=== PATIENT | male | born 1945 | race Caucasian/White ===

== ENCOUNTER → 2023-10-02 14:42 | Outpatient (REF) | payer MEDICARE, OTHER, SELFPAY ==
[2023-10-02 14:37] LABS: % Basophils 0.7 % (0-2); % Eosinophils 1.3 % (0-6); % Immature Granulocytes 0.2 % (0-0.5); % Lymphocytes 15.5 % (20.5-51.1); % Monocytes 8.9 % (1.7-9.3); % Neutrophils 73.4 % (42.2-75.2); Absolute Eosinophils 0.1 10^3/uL (0-0.7); Absolute Lymphocytes 0.9 10^3/uL (1.2-3.4); Absolute Monocytes 0.5 10^3/uL (0.1-0.6); Absolute Neutrophils 4.4 10^3/uL (1.4-6.5); Hematocrit 41.1 % (39.0-52.0); Hemoglobin 13.8 g/dL (13.0-18.0); Mean Corp Hgb Conc. 33.6 g/dL (33.0-37.0); Mean Corpuscular Hgb 29.4 pg (27.0-31.0); Mean Corpuscular Volume 87.6 fL (80.0-94.0); Mean Platelet Volume 9.5 fL (7.4-10.4); Platelet Count 210 10^3/uL (130-400); Red Blood Cell Count 4.69 10^6/uL (4.70-6.10); Red Cell Dist. Width 13.6 % (11.5-14.5); White Blood Cell Count 5.9 10^3/uL (4.8-10.8)
[2023-10-02 15:43] LABS: ALT (SGPT) 16 U/L (0-50); AST (SGOT) 24 U/L (17-59); Albumin 4.1 g/dl (3.5-5.0); Alkaline Phosphatase 73 U/L (38-126); Direct Bilirubin 0.1 mg/dl (0.0-0.4); Total Bilirubin 0.5 mg/dl (0.2-1.3); Total Protein 6.5 g/dl (6.3-8.2)
[2023-10-02 16:16] LABS: CEA 2.28 ng/ml
[2023-10-02 16:49] LABS: Folate 6.9 ng/ml (2.76-20); Vitamin B12 253 pg/ml (239-931)
== END ==
LOC: OIDL 14:42
PROVIDERS: ATTENDING PHYSICIAN Internal Medicine Hematology & Oncology
DX: C20 Malignant neoplasm of rectum (principal); D51.9 Vitamin B12 deficiency anemia, unspecified
CPT/HCPCS: 80076; 82378; 82607; 82746; 85025

== ENCOUNTER → 2024-03-03 09:14 | Outpatient (REF) | payer MEDICARE, OTHER, SELFPAY ==
[2024-03-03 10:45] LABS: % Immature Granulocytes 0.4 % (0-0.5); % Lymphocytes 17.8 % (20.5-51.1); % Monocytes 10.2 % (1.7-9.3); % Neutrophils 67.6 % (42.2-75.2); Absolute Basophils 0.1 10^3/uL (0-0.2); Absolute Eosinophils 0.2 10^3/uL (0-0.7); Absolute Lymphocytes 0.9 10^3/uL (1.2-3.4); Absolute Monocytes 0.5 10^3/uL (0.1-0.6); Absolute Neutrophils 3.4 10^3/uL (1.4-6.5); Hematocrit 42.5 % (39.0-52.0); Mean Corp Hgb Conc. 32.9 g/dL (33.0-37.0); Mean Corpuscular Hgb 29.5 pg (27.0-31.0); Mean Corpuscular Volume 89.7 fL (80.0-94.0); Mean Platelet Volume 10.5 fL (7.4-10.4); Nucleated Red Blood Cells % 0 % (-); Platelet Count 205 10^3/uL (130-400); Red Blood Cell Count 4.74 10^6/uL (4.70-6.10); Red Cell Dist. Width 14.6 % (11.5-14.5)
[2024-03-03 11:41] LABS: ALT (SGPT) 21 U/L (0-50); AST (SGOT) 26 U/L (17-59); Alkaline Phosphatase 65 U/L (38-126); Blood Urea Nitrogen 15 mg/dl (9-20); Calcium 9.4 mg/dl (8.4-10.2); Carbon Dioxide 30 mmol/L (22-30); Chloride 103 mmol/L (98-107); Glucose 92 mg/dl (70-99); HDL Cholesterol 52 mg/dl; LDL Cholesterol, Calculated 160 mg/dl; Potassium 4.8 mmol/L (3.5-5.1); Sodium 141 mmol/L (135-145); Total Bilirubin 0.5 mg/dl (0.2-1.3); Total Cholesterol 255 mg/dl (50-199); Total Protein 6.3 g/dl (6.3-8.2); Triglyceride 215 mg/dl (10-149); Very Low Density Lipoprotein 43 mg/dl (0-30); eGFR > 60.00
[2024-03-03 12:54] LABS: TSH 2.76 uIU/ml (0.47-4.68)
[2024-03-03 13:29] LABS: Folate 5.5 ng/ml (2.76-20); Vitamin B12 > 1000 pg/ml (239-931)
[2024-03-03 15:47] LABS: CEA 1.86 ng/ml
== END ==
LOC: REG 09:14
PROVIDERS: ATTENDING PHYSICIAN Internal Medicine Hematology & Oncology; FAMILY PHYSICIAN Nurse Practitioner
DX: D51.9 Vitamin B12 deficiency anemia, unspecified (principal); C20 Malignant neoplasm of rectum; E53.9 Vitamin B deficiency, unspecified; Z13.21 Encounter for screening for nutritional disorder; G47.00 Insomnia, unspecified
CPT/HCPCS: 36415; 80053; 80061; 82378; 82607; 82746; 84443; 85025

== ENCOUNTER → 2024-03-11 09:51 | Outpatient (REF) | payer MEDICARE, OTHER, SELFPAY | LOC: RAD 09:51 | PROVIDERS: ATTENDING PHYSICIAN Internal Medicine Hematology & Oncology; FAMILY PHYSICIAN Nurse Practitioner | DX: C20 Malignant neoplasm of rectum (principal); E53.8 Deficiency of other specified B group vitamins | CPT/HCPCS: 71260; 74177; Q9967 ==

== ENCOUNTER → 2024-09-23 11:54 | Outpatient (REF) | payer MEDICARE, OTHER, SELFPAY ==
[2024-09-23 12:51] LABS: % Basophils 0.7 % (0-2); % Eosinophils 1.6 % (0-6); % Immature Granulocytes 0.3 % (0-0.5); % Lymphocytes 15.9 % (20.5-51.1); % Monocytes 9.2 % (1.7-9.3); % Neutrophils 72.3 % (42.2-75.2); Absolute Basophils 0.1 10^3/uL (0-0.2); Absolute Eosinophils 0.1 10^3/uL (0-0.7); Absolute Lymphocytes 1.1 10^3/uL (1.2-3.4); Absolute Monocytes 0.6 10^3/uL (0.1-0.6); Absolute Neutrophils 4.9 10^3/uL (1.4-6.5); Hematocrit 42.3 % (39.0-52.0); Hemoglobin 14.3 g/dL (13.0-18.0); Mean Corp Hgb Conc. 33.8 g/dL (33.0-37.0); Mean Corpuscular Hgb 30.2 pg (27.0-31.0); Mean Corpuscular Volume 89.4 fL (80.0-94.0); Mean Platelet Volume 9.9 fL (7.4-10.4); Nucleated Red Blood Cells % 0 % (-); Platelet Count 192 10^3/uL (130-400); Red Blood Cell Count 4.73 10^6/uL (4.70-6.10); White Blood Cell Count 6.7 10^3/uL (4.8-10.8)
[2024-09-23 13:37] LABS: ALT (SGPT) 13 U/L (0-50); AST (SGOT) 20 U/L (17-59); Albumin 4.3 g/dl (3.5-5.0); Alkaline Phosphatase 65 U/L (38-126); Direct Bilirubin 0.3 mg/dl (0.0-0.4); Total Bilirubin 0.6 mg/dl (0.2-1.3); Total Protein 6.5 g/dl (6.3-8.2)
[2024-09-24 18:35] LABS: CEA 2.62 ng/ml
== END ==
LOC: REG 11:54
PROVIDERS: ATTENDING PHYSICIAN Internal Medicine Hematology & Oncology; FAMILY PHYSICIAN Nurse Practitioner
DX: C20 Malignant neoplasm of rectum (principal); E53.8 Deficiency of other specified B group vitamins
CPT/HCPCS: 36415; 80076; 82378; 85025

== ENCOUNTER → 2025-03-25 08:57 | Outpatient (REF) | payer MEDICARE, OTHER, SELFPAY ==
[2025-03-25 08:40] LABS: Glucose 102 mg/dl (70-99)
== END ==
LOC: PET 08:57
PROVIDERS: ATTENDING PHYSICIAN Internal Medicine Hematology & Oncology
DX: C20 Malignant neoplasm of rectum (principal); E53.8 Deficiency of other specified B group vitamins
CPT/HCPCS: 36415; 80076; 82378; 82607; 82746; 82947; 85025

== ENCOUNTER → 2025-03-25 12:26 | Outpatient (REF) | payer MEDICARE, OTHER, SELFPAY ==
[2025-03-25 14:00] LABS: Hematocrit 46.8 % (39.0-52.0); Hemoglobin 15.3 g/dL (13.0-18.0); Mean Corp Hgb Conc. 32.7 g/dL (33.0-37.0); Mean Corpuscular Volume 89.8 fL (80.0-94.0); Nucleated Red Blood Cells % 0 % (-); Platelet Count 204 10^3/uL (130-400); Red Cell Dist. Width 13.7 % (11.5-14.5)
[2025-03-25 14:35] LABS: ALT (SGPT) 15 U/L (0-50); AST (SGOT) 20 U/L (17-59); Albumin 4.7 g/dl (3.5-5.0); Alkaline Phosphatase 68 U/L (38-126); Total Protein 7.5 g/dl (6.3-8.2)
[2025-03-25 15:05] LABS: CEA 2.63 ng/ml
[2025-03-25 15:22] LABS: Vitamin B12 > 1000 pg/ml (239-931)
[2025-03-25 17:47] LABS: Folate 13.9 ng/ml (2.76-20)
== END ==
LOC: REG 12:26
PROVIDERS: ATTENDING PHYSICIAN Internal Medicine Hematology & Oncology; FAMILY PHYSICIAN Family Medicine Geriatric Medicine
DX: C20 Malignant neoplasm of rectum (principal); E53.8 Deficiency of other specified B group vitamins
CPT/HCPCS: 36415; 80076; 82378; 82607; 82746; 85025

== ENCOUNTER → 2025-04-22 12:21 | Outpatient (REF) | payer MEDICARE, OTHER, SELFPAY ==
[2025-04-22 12:57] VITALS: BP 150/90; BP_SYST 103
[2025-04-22 13:41] VITALS: BP 165/89; BP_SYST 84
== END ==
LOC: RADI 12:21
PROVIDERS: ATTENDING PHYSICIAN Internal Medicine Hematology & Oncology; FAMILY PHYSICIAN Nurse Practitioner
DX: Z45.2 Encounter for adjustment and management of vascular access device (principal); C20 Malignant neoplasm of rectum
CPT/HCPCS: 36590; 77001